=== PATIENT | female | born 2000 ===

== ENCOUNTER 2022-12-31 14:37 | Emergency (ER) | payer OTHER, MEDICAID, SELFPAY ==
[2022-12-31 15:23] VITALS: BP 117/63; PULSE 104; RESP 18; TEMP 37.1; O2SAT 99; BMI 24.2
[2022-12-31 16:18] LABS: Influenza A - CEPHEID Flu A NEGATIVE (NEGATIVE); Influenza B - CEPHEID Flu B NEGATIVE (NEGATIVE); Respiratory Syncytial Virus Negative (Negative)
[2022-12-31 16:26] LABS: COVID-19 CEPHEID 4-PLEX PCR Negative (Negative)
--- NOTE | 2022-12-31 17:37 | ED_ITS ---
HPI - URI/Sore Throat <SOFIA Lucia - Last Filed: 12/31/22 20:09> General Chief Complaint: Upper Respiratory Symptoms Stated Complaint: Ear pain, l side abd pain, fever, sore throat Time Seen by Provider: 12/31/22 16:59 Source: patient Mode of arrival: Family Vehicle History of Present Illness HPI Narrative: This is a 22-year-old female presents to the emergency department saying that she is had congestion, left-sided ear pain, runny nose, fever yesterday, sore throat and symptoms for the last 5 days. She denies vomiting but states that she feels nauseated. She also endorses history of left lower quadrant tenderness which is intermittent and comes on out of nowhere for the last 5 or 6 months. States that she is gone to [facility] for evaluation of this and was told it was constipation. She states she had diarrhea a few days ago, denies blood in her stool. Endorses abnormal vaginal discharge and states that her symptoms have been persistent and do not seem to be related to constipation. She endorses urinary frequency and urgency, mild dysuria and blood in her urine yesterday. Related Data Previous Rx's Medication Instructions Recorded amoxicillin 875 mg-potassium 1 tab PO BID 7 days #14 tabs 12/31/22 clavulanate 125 mg tablet benzocaine 15 mg-menthol 2.6 mg 1 negro mucous membrane Q2-4H PRN 12/31/22 lozenges (Cepacol Sore Throat sore throat #16 ea (benzocaine-menthol)) cetirizine 5 mg tablet 10 mg PO DAILY PRN congestion #30 12/31/22 tabs Allergies Allergy/AdvReac Type Severity Reaction Status Date / Time No Known Drug Allergies Allergy Verified 12/31/22 18:30 Review of Systems <SOFIA Lucia - Last Filed: 12/31/22 20:09> Review of Systems ROS Unobtainable: All systems reviewed & are unremarkable except as noted in HPI and below Patient History <SOFIA Lucia - Last Filed: 12/31/22 20:09> Social History Smoking Status: Never smoker Smoking Status: Never smoker alcohol intake frequency: 0-2 drinks per day Substance Use Type: does not use Exam <SOFIA Lucia - Last Filed: 12/31/22 20:09> Narrative Exam Narrative: Reviewed vitals signs and nursing notes. General: cooperative, uncomfortable, tearful, complaining of left ear pain, hoarse voice well groomed HEENT: symmetrical facial expressions, moist mucous membranes GI: abdomen soft, nontender to palpation, nondistended, without masses, rebound tenderness or exquisite tenderness with exam. Patient is complaining of left inguinal pain but no CVA tenderness bilaterally, some suprapubic tenderness to palpation and urinary frequency with urgency MSK: moves all extremities, neurovascularly intact, no weakness, normal tone Skin: brisk capillary refill, without pallor or erythema Neuro: normal speech and cognition, A&O x3, ambulatory, clear speech Psych: mental status is grossly normal, congruent mood, normal affect, pleasant and cooperative Initial Vital Signs Initial Vital Signs: Vital Signs Temperature 98.8 F 12/31/22 15:23 Pulse Rate 104 H 12/31/22 15:23 Respiratory Rate 18 12/31/22 15:23 Blood Pressure 117/63 12/31/22 15:23 Pulse Oximetry 99 12/31/22 15:23 Oxygen Delivery Method 12/31/22 15:23 <Alonzo Santiago DO - Last Filed: 12/31/22 22:52> Initial Vital Signs Initial Vital Signs: Vital Signs Temperature 98.8 F 12/31/22 15:23 Pulse Rate 104 H 12/31/22 15:23 Respiratory Rate 18 12/31/22 15:23 Blood Pressure 117/63 12/31/22 15:23 Pulse Oximetry 99 12/31/22 15:23 Oxygen Delivery Method 12/31/22 15:23 Course <SOFIA Lucia - Last Filed: 12/31/22 20:09> Orders Ordered: ED Orders 12/31/22 15:32 Covid-19 + FLU A/B + RSV - PCR Stat 12/31/22 17:36 Urine Microscopic Stat 12/31/22 17:39 Wet Prep Tric BV Mary Stat Discontinued Medications Amoxicillin/Clavulanate Potassium (Amoxicillin/Clav 875/125 Mg) 1 tab PO NOW ONE Stop: 12/31/22 17:19 Last Admin: 12/31/22 17:46 Dose: 1 tab Documented By: ZULAY Dexamethasone (Dexamethasone 10 Mg/Ml Vial) 10 mg PO NOW ONE Stop: 12/31/22 17:19 Last Admin: 12/31/22 17:46 Dose: 10 mg Documented By: CTS Ketorolac Tromethamine (Ketorolac 30 Mg/Ml Vial) 15 mg IM NOW ONE Stop: 12/31/22 17:19 Last Admin: 12/31/22 17:46 Dose: 15 mg Documented By: CTS Vital Signs Vital signs: Vital Signs - 8 hr 12/31/22 15:23 Temperature 98.8 F Pulse Rate 104 H Respiratory Rate 18 Blood Pressure 117/63 Pulse Oximetry 99 Oxygen Delivery Method Room Air <Alonzo Santiago DO - Last Filed: 12/31/22 22:52> Orders Ordered: ED Orders 12/31/22 15:32 Covid-19 + FLU A/B + RSV - PCR Stat 12/31/22 17:36 Urine Microscopic Stat 12/31/22 17:39 Wet Prep Tric BV Mary Stat Discontinued Medications Amoxicillin/Clavulanate Potassium (Amoxicillin/Clav 875/125 Mg) 1 tab PO NOW ONE Stop: 12/31/22 17:19 Last Admin: 12/31/22 17:46 Dose: 1 tab Documented By: ZULAY Dexamethasone (Dexamethasone 10 Mg/Ml Vial) 10 mg PO NOW ONE Stop: 12/31/22 17:19 Last Admin: 12/31/22 17:46 Dose: 10 mg Documented By: ZULAY Ketorolac Tromethamine (Ketorolac 30 Mg/Ml Vial) 15 mg IM NOW ONE Stop: 12/31/22 17:19 Last Admin: 12/31/22 17:46 Dose: 15 mg Documented By: CTS Vital Signs Vital signs: Vital Signs - 8 hr 12/31/22 15:23 Temperature 98.8 F Pulse Rate 104 H Respiratory Rate 18 Blood Pressure 117/63 Pulse Oximetry 99 Oxygen Delivery Method Room Air MDM - URI/Sore Throat <SOFIA Lucia - Last Filed: 12/31/22 20:09> Lab Data Lab results narrative: [facility] CLIA ID [id number] [address] [place] [address], [id number] RUN DATE: 12/31/22 Specimen Inquiry PAGE 1 RUN TIME: 1815 Name: Brent Parsons Age/Sex: 22/F Attend Dr: Cris Baxter Unit#: [id number] : 2000Location: ED Re12/31/22 Disch: Status: REG ER SPEC #: [id number] PRIMO: 12/31/22 STATUS: COMP REQ #: [id number] SPDESC: RECD: 12/31/22-[address]: Cris Baxter SOURCE: Vaginal ENTR: 12/31/[address]: FAX TO: ORDERED: Wet Prep Procedure Result Verified Site Wet Prep Tric BV Mary Final 12/31/221757 White blood cells No WBC seen Clue cells: None seen Yeast: None seen Trichomonas: None seen Labs: Lab Results 12/31/22 12/31/22 Range/Units 15:32 17:36 Urine RBC 1-5/hpf (0-5/HPF) Urine WBC 0-1/hpf (0-5/HPF) Ur Squamous Epith Cells 1-5 /hpf (0-5/HPF) Urine Bacteria Few (2-10) H (None) Ur Culture Indicated? Cult not indicated SARS-CoV-2 (PCR) Negative (Negative) Influenza A (RT-PCR) Flu a negative (NEGATIVE) Influenza B (RT-PCR) Flu b negative (NEGATIVE) RSV (PCR) Negative (Negative) Urine Dip Bedside Urine Glucose Negative Bedside Urine Bilirubin - Negative Bedside Urine Ketone - Negative Urine Specific [place] 1.000 Bedside Urine Occult Blood ++ Bedside Urine pH 6.0 Bedside Urine Protein - Negative Bedside Urine Urobilinogen - Negative Bedside Urine Nitrite - Negative Bedside Urine Leukocytes - Negative Esterase MDM Narrative Medical decision making narrative: Chief Complaint: Sore throat, left pelvic/abdominal pain, left ear pain, congestion Independent historian: Patient Differential diagnoses include but are not limited to: Acute viral process, otitis media, BACTERIAL pharyngitis, bronchitis, GERD, postnasal drip, ACUTE CYSTITIS, OVARIAN CYST, BACTERIAL VAGINOSIS/VAGINITIS, PID, STI, dehydration. Respiratory PCR: Negative for COVID, influenza a, B and RSV Do not suspect underlying cardiopulmonary process. Patient is nontoxic appearing and not in need of emergent medical intervention. Patient's wet prep is negative for WBCs, clue cells yeast and Trichomonas. UA microscopy shows few bacteria and RBCs without evidence of contaminant, Patient is tolerating p.o., I have independently reviewed the patient's vital signs and nursing notes as well as prior records if available. Pertinent lab findings reviewed: UA microscopy shows bacteria 2-10 patient endorses abnormal vaginal discharge however her wet mount was negative for infection, she endorses urinary frequency and urgency. Course of care: Patient's pain was treated with Toradol, Decadron, and Augmentin as she has left TM erythema, suppurative, it is bulging and so she is without anterior cervical lymphadenopathy, mastoid tenderness, toxic appearance, without fever and chills currently. Initially she was tachycardic and this was never rechecked. On my exam, she was p.o. tolerant after NSAIDs and pain control, her heart rate came down to the mid 80s on my reassessment. Respiratory panel is negative for tested viruses, will treat for acute cystitis due to her symptoms, bacteria found in the urine without contaminant, negative wet prep, and treat her for left otitis media with Augmentin. Augmentin a solo therapy should be adequate as her UTI does not appear to be significant and urine cultures pending. We will call her if the antibiotic is not sufficient. Cetirizine was prescribed for middle ear congestion as both TMs are bulging, the right TM shows clear fluid behind TM with normal landmarks but patient does have congestion. She was given Cepacol throat lozenges, Augmentin and cetirizine as prescriptions. She is not vomiting and is p.o. tolerant, she is rehydrated. Social considerations that may affect disposition: none Questions are addressed and there is agreement with the plan and for follow-up. Patient is appropriate for outpatient management. MIPS: This encounter doesn't have any diagnosis' associated with MIPS criteria. <Alonzo Santiago, DO - Last Filed: 12/31/22 22:52> Lab Data Labs: Lab Results 12/31/22 12/31/22 Range/Units 15:32 17:36 Urine RBC 1-5/hpf (0-5/HPF) Urine WBC 0-1/hpf (0-5/HPF) Ur Squamous Epith Cells 1-5 /hpf (0-5/HPF) Urine Bacteria Few (2-10) H (None) Ur Culture Indicated? Cult not indicated SARS-CoV-2 (PCR) Negative (Negative) Influenza A (RT-PCR) Flu a negative (NEGATIVE) Influenza B (RT-PCR) Flu b negative (NEGATIVE) RSV (PCR) Negative (Negative) Urine Dip Bedside Urine Glucose Negative Bedside Urine Bilirubin - Negative Bedside Urine Ketone - Negative Urine Specific [place] 1.000 Bedside Urine Occult Blood ++ Bedside Urine pH 6.0 Bedside Urine Protein - Negative Bedside Urine Urobilinogen - Negative Bedside Urine Nitrite - Negative Bedside Urine Leukocytes - Negative Esterase Discharge Plan Departure Patient Disposition: Home Clinical Impression: Otitis media Qualifiers: Otitis media type: suppurative Chronicity: acute Laterality: left Recurrence: non-recurrent Spontaneous tympanic membrane rupture: without spontaneous rupture Qualified Code(s): H66.002 - Acute suppurative otitis media without spontaneous rupture of ear drum, left ear Acute cystitis Qualifiers: Hematuria presence: without hematuria Qualified Code(s): N30.00 - Acute cystitis without hematuria Instructions: Middle Ear Infection, Acute Cystitis Activity Restrictions/Additional Instructions: *You have been diagnosed with a left-sided ear infection, bacteria in your urine, GA and upper respiratory viral infection that is not COVID, influenza or RSV. Use Zyrtec nightly for congestion it will help with the ear pain, take ibuprofen 600 mg every 6 hours for the pain with something to eat or drink. That will help with inflammation as well, okay to take Tylenol with that. Please stay hydrated and drink plenty of clear fluids advance your diet as tolerated. *What to do: *Please continue to take your regular medications as directed. [x ] New medication prescriptions sent to your pharmacy: [ [facility]] [ ] New medication written as a paper prescription [ ] No new medications given *Please follow up with your primary care provider in 2-3 days, call for an appointment. Let them know you were seen in the Emergency Department and that we asked that you be seen for follow-up. We will electronically transmit a record of today's note if your PCP is in our system *If you do not have a primary care provider please contact [phone] to est [facility] with one of the [facility] primary care providers. *Return to Emergency Department if you should have any new, worsening, or concerning symptoms, such as [fever greater than 101F, chills, worsening pain, persistent vomiting or other bothersome symptoms]. Prescriptions: New amoxicillin-pot clavulanate 875-125 mg tablet 1 tab PO BID 7 Days Qty: 14 0RF Cepacol Sore Throat (emi-men) 15-2.6 mg lozenge 1 negro mucous membrane Q2-4H PRN (Reason: sore throat) Qty: 16 0RF cetirizine 5 mg tablet 10 mg PO DAILY PRN (Reason: congestion) Qty: 30 0RF Stand Alone Forms: Patient Portal/API <Alonzo Santiago DO - Last Filed: 12/31/22 22:52> Cosign ED Attending Cosignature Attestation: I was immediately available in the department for consultation. This documentation has been reviewed and I agree with assessment and plan. Supervised by Alonzo Santiago DO
[2022-12-31] MEDS: KETOROLAC 30 MG/ML VIAL 15 MG IM (17:46)
[2022-12-31] MEDS: DEXAMETHASONE 10 MG/ML VIAL PO (17:46)
[2022-12-31] MEDS: AMOXICILLIN/CLAV 875/125 MG 1 TAB PO (17:46)
[2022-12-31 18:06] LABS: Bacteria Urine Few (2-10); Culture Indicated Urine Cult Not Indicated; RBC Urine 1-5/HPF (0-5/HPF); Squamous Epithelial Cell Urine 1-5 /HPF (0-5/HPF); WBC Urine 0-1/HPF (0-5/HPF)
== END 2022-12-31 18:30 | disposition home or self-care (01) ==
PROVIDERS: Emergency Medicine; Emergency Provider Nurse Practitioner Critical Care Medicine
DX: H66.002 Acute suppurative otitis media without spontaneous rupture of ear drum, left ear (principal); N30.00 Acute cystitis without hematuria; Z20.822 Contact with and (suspected) exposure to COVID-19
CPT/HCPCS: 0241U; 81003; 81015; 87210; 96372; 99283; J1100; J1885